=== PATIENT | male | born 1950 | race Caucasian/White ===

== ENCOUNTER → 2021-07-22 | Outpatient (CLI) | payer OTHER, SELFPAY ==
--- NOTE | 2021-07-22 11:00 | PROSBIL_PTH ---
PATIENT: SUKH BERTRAND LOC: [facility] U#:[id number] AGE/SX: 71/M ROOM: RE07/22/[address]: Dr. Sorin Echeverria MD : 1950 BED: DIS: 07/22/2021 SPEC #: [id number] RECD: 07/22/21 16:35 STATUS: REEMA THORNTON #: [id number] SIDNEY: 07/22/21 11:[address]: Sorin Echeverria DEPT: SURGICAL PATHOLOGY RECD BY: Mari Rendon Tissues: A - PROSTATE RIGHT B - PROSTATE RIGHT C - PROSTATE RIGHT D - PROSTATE LEFT E - PROSTATE LEFT F - PROSTATE LEFT Procedures: PROSTATE BX HEADER OPERATION: Prostate biopsy PRE-OP DIAGNOSIS: R97.20 TISSUE SUBMITTED: A - Right apex, B - Right mid, C - Right base, D - Left apex, E - Left mid, F - Left base MICROSCOPIC DIAGNOSIS A. Right prostate, apex, core biopsy: Prostatic tissue, negative for malignancy. Focal mild acute and chronic inflammation and basal cell hyperplasia. B. Right prostate, mid, core biopsy: Prostatic tissue, negative for malignancy. Focal mild chronic inflammation. C. Right prostate, base, core biopsy: Prostatic tissue, negative for malignancy. Focal mild chronic inflammation. D. Left prostate, apex, core biopsy: Prostatic tissue, negative for malignancy. Focal mild acute and chronic inflammation. E. Left prostate, mid, core biopsy: Prostatic tissue, negative for malignancy. Focal mild chronic inflammation. F. Left prostate, base, core biopsy: Prostatic tissue, negative for malignancy. SJ:chidi 07/24/2021 MICROSCOPIC DESCRIPTION Slides are reviewed. GROSS DESCRIPTION A - Received is one container designated prostate, right apex. The specimen consists of two elongated fragments of light wahl-white soft tissue each measuring 1.2 cm in length and 0.1 cm in diameter. The specimen is totally submitted in one cassette. B - Received is one container designated prostate, right mid. The specimen consists of two elongated fragments of light wahl-white soft tissue each measuring 0.9 cm in length and 0.1 cm in diameter. The specimen is totally submitted in one cassette. C - Received is one container designated prostate, right base. The specimen consists of two elongated fragments of light wahl-white soft tissue measuring 0.7 and 1.5 cm in length and 0.1 cm in diameter. The specimen is totally submitted in one cassette. D - Received is one container designated prostate, left apex. The specimen consists of two elongated fragments of light wahl-white soft tissue measuring 0.8 and 1.2 cm in length and 0.1 cm in diameter. The specimen is totally submitted in one cassette. E - Received is one container designated prostate, left mid. The specimen consists of three elongated fragments of light wahl-white soft tissue measuring 0.5 to 1 cm in length and 0.1 cm in diameter. The specimen is totally submitted in one cassette. F - Received is one container designated prostate, left base. The specimen consists of two elongated fragments of light wahl-white soft tissue measuring 0.8 and 1.4 cm in length and 0.1 cm in diameter. The specimen is totally submitted in one cassette. / SJ:rg 07/23/2021 TC:3 CPT: 08624 x6
== END | disposition home or self-care (01) ==
LOC: LABSPEC 17:05
PROVIDERS: Visit Provider Urology
DX: R97.20 Elevated prostate specific antigen [PSA] (principal); N40.0 Benign prostatic hyperplasia without lower urinary tract symptoms
CPT/HCPCS: 88305; G0416

== ENCOUNTER 2022-06-18 13:19 | Observation (INO) | payer SELFPAY, OTHER ==
[2022-06-18] VITALS (10 sets, daily range): BP systolic 138–186; BP diastolic 81–112; PULSE 66–112; RESP 16–20; TEMP 36.4–36.7; O2SAT 94–97; BMI 21.1
--- NOTE | 2022-06-18 | PROS_PTH ---
PATIENT: SUKH BERTRAND LOC: [facility] U#:[id number] AGE/SX: 72/M ROOM: [facility] RE06/18/[address]: Dr. Sorin Echeverria MD : 1950 BED: 1 DIS: 06/20/2022 SPEC #: [id number] RECD: 06/19/22 07:08 STATUS: REEMA GUERINPhuc #: [id number] SIDNEY: 06/18/22 00:[address]: Sorin Echeverria DEPT: SURGICAL PATHOLOGY RECD BY: Jona Watson ENTERED: 06/19/22 08:46 SP TYPE: TURP OTHR DR: Lucille Manzo, TOGGLER-C Tissues: Prostate, NOS Procedures: Surgery Specimen Level IV HEADER OPERATION: Cysto, TUR prostate, [employer] PRE-OP DIAGNOSIS: BPH with lower urinary tract symptoms TISSUE SUBMITTED: Prostate tissue MICROSCOPIC DIAGNOSIS Prostate, transurethral resection: Benign nodular hyperplasia, glandular and stromal types. Chronic inflammation. AM:chidi 06/20/2022 MICROSCOPIC DESCRIPTION Slides are reviewed. GROSS DESCRIPTION Received is one container labeled with the patient's name and designated prostate tissue. The specimen consists of multiple irregular fragments of pink-wahl, rubbery, soft tissue that in aggregate weigh 25.2 gm and measure in aggregate 6.5 x 6.5 x 1.7 cm. Currency Machine Operator portions are submitted in ten cassettes. / AM:chidi 06/19/2022 TC:3 CPT: 43446
--- NOTE | 2022-06-18 13:22 | PCM.HP.STD ---
HPI - General HPI Narrative SUKH BERTRAND, is a 72 M who presents for transurethral resection of the prostate. PFSH Medical History (Updated 06/11/22 @ 09:28 by Susanne Marquez) Anxiety Difficulty swallowing Former smoker High cholesterol History of rectal fissure Hx of pneumothorax Indwelling urethral catheter present Prostate disease Restless legs Wears glasses Wears partial dentures Home Medications saw palmetto 500 mg capsule 540 mg PO DAILY 06/11/22 [History Last Taken Unknown] trazodone 100 mg tablet 100 mg PO DAILY 06/11/22 [History Last Taken Unknown] vitamin A 2,400 mcg capsule 2,400 mcg PO DAILY 06/11/22 [History Last Taken Unknown] ciprofloxacin HCl 500 mg tablet (Cipro) 500 mg PO BID #10 tabs 06/18/22 [Rx Last Taken Unknown] Allergy/AdvReac Type Severity Reaction Status Date / Time No Known Allergies Allergy Verified 06/11/22 09:16 Surgical History (Updated 06/11/22 @ 09:28 by Susanne Marquez) Hx of tonsillectomy Social History Smoking Status: Former smoker
--- NOTE | 2022-06-18 13:23 | PCM.DC ---
Discharge Instructions Diet Discharge Diet: No restrictions, Light diet - advance as tolerated and Soft diet Activity Discharge Activity: Return to Normal Activity Dressing / Incision Call your doctor if your incision/area has: Sudden Increased Bleeding Follow Up Care Please Follow Up With: Sorin Echeverria MD When: 2 weeks Test Results: Test results from this visit will be discussed in further detail at your follow-up appointment, if applicable. Discharge Plan Admission Primary Reason for Your Visit: victorino Attending Provider: Sorin Echeverria Primary Care Provider: Lucille Manzo Instructions Patient Instructions: TURP Home Recovery Discharge Orders/Prescriptions Prescriptions: New ciprofloxacin HCl [Cipro] 500 mg tablet 500 mg PO BID Qty: 10 0RF Continued vitamin A 2,400 mcg Capsule 2,400 mcg PO DAILY trazodone 100 mg tablet 100 mg PO DAILY Label Comments: Take 1 tablet by mouth at bedtime saw palmetto 500 mg Capsule 540 mg PO DAILY Rx Instructions: give with food (meal/snack) Other Ambulatory Orders: 12 Lead EKG (Routine) Timeframe: [id number] Location: None Selected Ordered By: Dr. Farrukh Li Referrals / Follow Up: Sorin Echeverria MD [Med Staff - Active Staff] - Lucille Manzo, WHIPPED TOPPING MIXER-C [Primary Care Provider] - Disposition Disposition (needs filled in before D/C Order can be placed): Home, Self Care
[2022-06-18] MEDS: Lactated Ringers 1,000 ML 15 ML IV (13:35)
[2022-06-18] MEDS: Cefazolin 2 GM in 0.9% Normal Saline 100 ML IV (14:40)
--- NOTE | 2022-06-18 14:45 | EKG12_ITS ---
Test Reason : PRE OP Blood Pressure : / mmHG Vent. Rate : 069 BPM Atrial Rate : 069 BPM P-R Int : 148 ms QRS Dur : 102 ms QT Int : 394 ms P-R-T Axes : 053 041 035 degrees QTc Int : 422 ms Normal sinus rhythm Normal ECG No previous ECGs available Confirmed by MARCELO JOHNSON, SOFIYA ([id number]), development editor ULICES CARTWRIGHT ([id number]) on 06/20/2022 2:43:19 P M Referred By: Sorin Echeverria Confirmed By:CRISTEL ROBERTSON MD
--- NOTE | 2022-06-18 16:17 | PCM.OPRPT ---
Report of Operation Date of Procedure: 06/18/22 Pre-Operative Diagnosis: BPH with obstruction retention of urine Post-Operative Diagnosis: The same Surgery/Procedure Performed:: Transurethral section of prostate Description of Surgical Findings:: In the preoperative setting I discussed with the patient how the surgery would be done with expect afterwards. We discussed how a prostate resection is done and we discussed the risk of the surgery including, bleeding, infection, retrograde ejaculation, changes with ejaculation or intercourse,. We discussed the possibility that the resection of the prostate may not alleviate his urinary symptoms. We discussed the small risk of developing scar tissue along the urethral channel and strictures. We also discussed the chance of the prostate could grow back and he may need further surgery or treatment in the future for prostate problems. Patient was taken back to the operating room, timeout procedure was performed, he was identified and marked and placed on the operating room table. He underwent general anesthesia. He was placed in dorsolithotomy position. Penis and testicles were prepped and draped in usual sterile fashion. Went into the bladder using the visual obturator with a resectoscope. Once inside the bladder identified the right and left ureteral orifice. I then identified the prostate and the anatomy of the prostate. I marked out the area of the sphincter and the verumontanum was identified. I then proceeded with the prostate resection first resected the median lobe. And then resected the right lobe of the prostate. Then to resect the left lobe of the prostate. I then resected the apical tissue of the prostate. This was a complete resection of all obstructive tissue to improve voiding and relieve obstruction. I then made sure that there was no injury to the sphincter or the verumontanum was still intact. At the end of the resection all the chips were Ellik out of the bladder. I then identified the left and right ureteral orifice and these were confirmed to be in good position and effluxing and not injured. The resectoscope was removed, a 22 [place] catheter was placed into the bladder on continuous irrigation. And the urine was fairly light pink color and draining normally. He was taken back to the PACU in good condition. Surgeon: Sorin Echeverria Type of Anesthesia: General Drains: 22fr [address] way Admit VTE Documentation VTE Present on Admission: No VTE Mechan Device Prophylaxis: SCD's VTE Pharm Prophylaxis ordered?: No
[2022-06-18] MEDS: 0.9% Normal Saline 1,000 ML 125 ML IV (19:11)
--- NOTE | 2022-06-18 19:33 | NURSING ---
traction placed to bazzi with primary RN as ordered. continued CBI wide open. Primary RN informed of conversation with Dr. Echeverria, oncoming shift updated. pt tolerated well.
[2022-06-18] MEDS: Ciprofloxacin 400 MG/200 ML BAG 200 MG IV (22:23)
[2022-06-18] MEDS: Docusate Sodium 100 MG Capsule 200 MG PO (22:25)
[2022-06-18] MEDS: traZODone 100 MG Tablet PO (23:22)
[2022-06-19 04:30] VITALS: BP 108/73; PULSE 82; RESP 18; TEMP 36.4; O2SAT 95
[2022-06-19 05:57] LABS: Hematocrit 32.3 % (40-54); Hemoglobin 11.3 g/dL (13.0-16.5)
--- NOTE | 2022-06-19 07:47 | PCM.PN.GU ---
Subjective Subjective Status post TURP had a very large prostate heavy bleeding overnight, will continue with irrigation today will need 1 more day of irrigation 1 more day in the hospital and then will remove the catheter hopefully tomorrow. Objective Data Objective Data Vital Signs: Vital Signs Temp Pulse Resp BP Pulse Ox O2 Del Method 97.5 F L 82 18 108/73 95 Room Air 06/19/22 04:30 06/19/22 04:30 06/19/22 04:30 06/19/22 04:30 06/19/22 04:30 06/19/22 04:30 Oxygen Delivery Method Room Air Weight: 63 kg Body Mass Index (BMI) 21.1 Intake & Output: Intake and Output for Last 24 Hours 06/17/22 06/18/22 06/19/22 23:59 23:59 23:59 Intake Total 967.5 / 967.5 Output Total 1750 / 1750 1800 / 1800 Balance -782.5 / -782.5 -1800 / -1800 Lab / Micro Data Result Diagrams: 06/19/22 05:35 Labs: Laboratory Results - last 24 hr 06/19/22 05:35: Hgb 11.3 L, Hct 32.3 L
[2022-06-19 09:19] VITALS: BP 109/74; PULSE 95; RESP 16; TEMP 36.6; O2SAT 95
[2022-06-19] MEDS: Docusate Sodium 100 MG Capsule 200 MG PO ×2 (09:21→20:29)
[2022-06-19] MEDS: Ciprofloxacin 400 MG/200 ML BAG 200 MG IV (09:23)
[2022-06-19 15:00] VITALS: BP 122/68; PULSE 88; RESP 16; TEMP 37; O2SAT 95
[2022-06-19] MEDS: Acetaminophen 325 MG Tablet PO ×2 (16:03→20:29)
[2022-06-19 20:23] VITALS: BP 145/85; PULSE 93; RESP 18; TEMP 36.9; O2SAT 95
[2022-06-19 20:30] VITALS: BP 145/85; PULSE 93; RESP 18; TEMP 36.9; O2SAT 95
[2022-06-19] MEDS: traZODone 100 MG Tablet PO (22:19)
[2022-06-20 03:10] VITALS: BP 116/69; PULSE 75; RESP 18; TEMP 36.6; O2SAT 97
--- NOTE | 2022-06-20 07:25 | PCM.PN.BLA ---
Progress Note s/p turp dc bazzi for a voiding trial
[2022-06-20 08:00] VITALS: BP 130/62; PULSE 104; RESP 16; TEMP 36.9; O2SAT 100
[2022-06-20 08:19] VITALS: BP 119/79; PULSE 89; RESP 16; TEMP 37; O2SAT 95
[2022-06-20] MEDS: Docusate Sodium 100 MG Capsule 200 MG PO (09:09)
== END 2022-06-20 15:06 | disposition home or self-care (01) ==
LOC: MS3 16:38 → SDC 06-19 10:07 → MS3 06-19 10:07
PROVIDERS: Admitting Provider Urology; PCP Nurse Practitioner Family; Referring Provider Urology; Visit Provider Urology
PROC: (CPT 52601; principal; 2022-06-18 15:30)
DX: N40.1 Benign prostatic hyperplasia with lower urinary tract symptoms (principal); R33.8 Other retention of urine; E78.00 Pure hypercholesterolemia, unspecified; Z87.891 Personal history of nicotine dependence; Z79.899 Other long term (current) drug therapy; F41.9 Anxiety disorder, unspecified; R13.10 Dysphagia, unspecified
CPT/HCPCS: 52601; 00914; 36415; 85014; 85018; 88305; 93005; 96361; 96365; 96366; 99218; 99251; J7030; J7120; G0378; G0463; J0744; J2405